=== PATIENT | male | born 1995 | race African-American/Black ===

== ENCOUNTER 2021-03-15 14:33 | Outpatient (REF) | payer OTHER, SELFPAY | END 2021-03-15 14:34 | disposition home or self-care (01) | LOC: HO.LAB 14:33 | PROVIDERS: Visit Provider Internal Medicine | DX: Z20.822 Contact with and (suspected) exposure to COVID-19 (principal) | CPT/HCPCS: C9803; U0003; U0005 ==

== ENCOUNTER 2024-04-13 09:47 | Outpatient (AMB) | payer OTHER, SELFPAY ==
--- NOTE | 2024-04-13 09:52 | MHC.PC.OV ---
Vital Signs 04/13/24 09:54 Height 5 ft 9.5 in Weight 221 lb BMI 32.2 BP 100/62 Blood Pressure Location Lt brachial Position Sitting Pulse 83 Pulse Source Pulse Oximeter Pulse Oximetry (%) 94 Oxygen Delivery Method Room Air Intake Visit Reasons: New Patient Intake Note: Patient is a new patient here to establish care for physical. Transferring care from unknown. Medical records have not been requested and have not received. Retail Business Development Manager Required: No Probation Supervisor: Not Required per policy Accompanied by: Self / Same As Patient Allergies No Known Allergies Allergy (Verified 04/13/24 09:58) Tobacco use date assessed: 04/13/24 Dental Screening Dental Screen Date: 04/13/24 Did you have a dental visit in the last 12 months?: Yes Did you have a dental problem in the last 6 months where you did not have access to dental care?: No Was dental information given to patient?: Patient has dentist HPI New Patient HPI Details 28-year-old male presents to the office, wishes to establish his care here and requesting an annual physical. He is in good health and has no complaints. Patient works as a welder production line gas, and smokes marijuana. Occasional alcohol use. He lives with his mother and has 3 children. [facility] Surgical History History of tonsillectomy Social History Housing: Apartment Alcohol intake: current Alcohol intake frequency: holidays/special occasions only Patient Tobacco Use Status: Never used Tobacco e-Cigarette/Vaping Use: Never Used Second Hand Smoke Exposure: No Substance Use Type: Marijuana Substance Use Frequency: Daily service: No Current occupational status: employed Current occupation: Digital Recruiter Cognitive needs: No Hearing needs: No Vision needs: No Questionnaire PHQ-9 Over the last 2 weeks, how often have you been bothered by any of the following problems? 1. Little interest or pleasure in doing things: not at all 2. Feeling down, depressed, or hopeless: not at all 3. Trouble falling or staying asleep, or sleeping too much: not at all 4. Feeling tired or having little energy: not at all 5. Poor appetite or overeating: not at all 6. Feeling bad about yourself - or that you are a failure or have let yourself or your family down: not at all 7. Trouble concentrating on things, such as reading the newspaper or watching television: not at all 8. Moving or speaking so slowly that other people could have noticed. Or the opposite - being so fidgety or restless that you have been moving around a lot more than usual: not at all 9. Thoughts that you would be better off or of hurting yourself in some way: not at all Total score: 0 Depression Screening Interpretation: Negative Depression Screening Done: Yes Source: Developed by Drs. Aung Yeh, Chrissy Lantigua, Magnus Edge and colleagues, with an educational jade from [employer]. Thrive Questionnaire Date Thrive assessed: 04/13/24 I am a: Patient What is your living situation today?: I have a steady place to live Within the past 12 months, did the food you bought not last and you didn't have the money to get more?: Never true Within the past 12 months, did you worry whether your food would run out before you got money to buy more?: Never true Do you have trouble paying for medicines?: No Do you have trouble getting transportation to medical appointments?: No Do you have trouble paying your heating and electricity bill?: No Do you have trouble taking care of your child, family member or friend?: No Do you have trouble with day-to-day activities such as bathing, preparing meals, shopping, managing finances, etc.?: No Are you currently unemployed and looking for a job?: No Are you interested in more education?: No Currently or been in a relationship where the following occur: No concerns reported THRIVE Score: 0 AUDIT C Alcohol Use Questionnaire (AUDIT-C) 1. How often do you have a drink containing alcohol?: Monthly or less Total Score: 1 GERARD-7 AMB Questionnaire GERARD-7 Date GERARD - 7 assessed: 04/13/24 Feeling nervous, anxious, or on edge: 3 = Nearly every day Not being able to stop or control worryin = Not at all Worrying too much about different things: 0 = Not at all Trouble relaxin = Several days Being so restless that it is hard to sit still: 1 = Several days Becoming easily annoyed or irritable: 0 = Not at all Feeling afraid as if something awful might happen: 0 = Not at all Total GERARD-7 score (0-4 normal; 5-9 mild; 10-14 moderate; 15-21 severe): 5 Source: Developed by Drs. Aung Yeh, Chrissy Lantigua, Magnus Edge and colleagues, with an educational jade from [employer]. Physical exam (Primary Care) Vital Signs: Last Vital Signs Pulse 83 04/13/24 09:54 BP 100/62 04/13/24 09:54 Pulse Ox 94 04/13/24 09:54 Oxygen Delivery Method Room Air 04/13/24 09:54 Care Plan Goal for BP management: Blood pressure is in range. Currently on no medications. BMI result Body Mass Index 32.2 BMI Assessment/Plan discussion: High Tobacco/Smoking Status: Tobacco use Status Tobacco use date assessed 04/13/24 04/13/24 10:01 Patient Tobacco Use Status Never used Tobacco 04/13/24 10:01 e-Cigarette/Vaping Use Never Used 04/13/24 10:01 PHQ-9: PHQ-9 Score PHQ-9: Total score 0 04/13/24 10:01 Depression Screening Interpretation: Negative Thrive Assessment: Date of Thrive Assessment Date Thrive assessed 04/13/24 04/13/24 10:01 Currently or been in a relationship where the following occur: No concerns reported Const General: cooperative and healthy appearing Nutritional Appearance: well nourished Orientation/consciousness: patient oriented x3 Limitations: no limitations HENMT Head: Yes normal to inspection Eyes General: appearance normal, both eyes and all related structures Neck Neck: Yes normal visual inspection Chest Chest palpation & inspection: normal palpation of entire chest wall Resp Effort & Inspection: normal respiratory effort Neuro General: patient oriented x3 Assessment and Plan Assessment & Plan (1) Familial hypercholesterolemia: Code(s): E78.01 - Familial hypercholesterolemia (2) Annual physical exam: Code(s): Z00.00 - Encounter for general adult medical examination without abnormal findings Plan: Blood work has been ordered. Will call with results. Orders: Orders Basic Metabolic Panel Today E78.01 - Familial hypercholesterolemia Complete Blood Count no Diff Today E78.01 - Familial hypercholesterolemia Liver Panel Today E78.01 - Familial hypercholesterolemia UA and rflx microscopic Today E78.01 - Familial hypercholesterolemia Lipid Panel Today E78.01 - Familial hypercholesterolemia Thyroid Stimulating Hormone Today E78.01 - Familial hypercholesterolemia Coding Level of Care Code New Pt Prev Care [id number] Diagnoses Familial hypercholesterolemia E78.01 Annual physical exam Z00.00
[2024-04-13 09:54] VITALS: BP 100/62; PULSE 83; O2SAT 94; BMI 32.2
== END 2024-04-13 14:10 | disposition home or self-care (01) ==
PROVIDERS: PCP Internal Medicine; Visit Provider Internal Medicine
DX: E78.01 Familial hypercholesterolemia (principal); Z00.00 Encounter for general adult medical examination without abnormal findings
CPT/HCPCS: 99385

== ENCOUNTER 2024-04-13 10:43 | Outpatient (REF) | payer OTHER, SELFPAY ==
[2024-04-13 12:13] LABS: Hematocrit 43.3 % (42.0-52.0); Hemoglobin 15.5 g/dl (14.0-18.0); Mean Corpuscular HGB Conc 35.8 g/dl (31.0-36.0); Mean Corpuscular Hemoglobin 28.9 pg (27.0-33.0); Mean Corpuscular Volume 80.8 fL (80.0-98.0); Mean Platelet Volume 10.6 fL (9.4-12.4); Platelet Count 219 X10*3/uL (160-400); Red Blood Count 5.36 X10*6/uL (4.60-5.80); Red Cell Distribution Width 13.6 % (11.0-16.0); White Blood Count 9.6 X10*3/uL (4.8-10.8)
[2024-04-13 13:35] LABS: Alanine Aminotransferase 15 U/L (0-40); Albumin Level 4.3 g/dL (3.5-5.0); Alkaline Phosphatase 75 U/L (39-117); Anion Gap 13 (12-20); Aspartate Amino Transferase 11 U/L (5-37); Bilirubin Direct 0.3 mg/dL (0.0-0.5); Bilirubin Total 1.1 mg/dL (0.0-1.0); Blood Urea Nitrogen 6 mg/dL (9-16); Calcium 9.7 mg/dL (8.4-10.2); Carbon Dioxide 26 mmol/L (22-29); Chloride 106 mmol/L (96-108); Cholesterol 207 mg/dL (<200); Estimated Glomerular Filt Rate > 60; Glucose Random 89 mg/dL (60-115); HDL Cholesterol 36 mg/dL (>40); LDL Cholesterol Calculated 118 mg/dL (<100); Potassium 3.9 mmol/L (3.3-5.1); Sodium 141 mmol/L (135-145); Total Protein 7.5 g/dL (6.5-8.0); Triglycerides 265 mg/dL (<150)
[2024-04-13 13:50] LABS: Thyroid Stimulating Hormone 1.16 uIU/mL (0.32-4.0)
== END 2024-04-13 10:44 | disposition home or self-care (01) ==
LOC: HO.LAB 10:43
PROVIDERS: PCP Internal Medicine; Visit Provider Internal Medicine
DX: E78.01 Familial hypercholesterolemia (principal)
CPT/HCPCS: 36415; 80048; 80061; 80076; 84443; 85027